=== PATIENT | male | born 1945 | race Caucasian/White ===

== ENCOUNTER 2019-04-13 11:03 | Emergency (ER) | payer MEDICARE, SELFPAY ==
--- NOTE | ~2019-04-13 | CT_ITS ---
EXAMINATION: CT abdomen pelvis wo con EXAM DATE: 04/13/2019 13:37 INDICATION: Left flank pain. TECHNIQUE: Spiral CT of the abdomen and pelvis was performed without contrast. Axial, coronal and sag ittal images were reviewed. The dose-length product (DLP) for this examination was 1425.52 mGy-cm. The exposure was tailored according to patient size (auto mA exposure control), and iterative reconst ruction (ASIR) was used as additional dose reduction technique. There is no prior study for comparis on. FINDINGS: There are 2 contiguous left ureteropelvic junction stones at 4 and 6 mm, mild hydronephrosi s. There are 2 stones at the left ureterovesicular junction measuring 2 and 3 mm. No hydroureter. Thi s is a cyst There are 2 additional 3 mm left inferior calyceal stones. Moderate inflammation surround ing the left kidney. There is mild prostatomegaly. The bladder is unremarkable. The liver, spleen, adrenal glands and pancreas are unremarkable. Gallbladder is unremarkable. No biliary obstruction. There is no retroperitoneal or pelvic lymphadenopathy. There is moderate scattered arterioscleroti c disease. The appendix is normal. The stomach and small bowel are unremarkable. There is expected amount of c olonic stool. There is extensive colonic diverticulosis. There is no adjacent inflammatory change to suggest diverticulitis. The heart is normal in size. There are no pericardial or pleural effusions. The lung bases are unremarkable. There are no osteoblastic or osteolytic lesions identified. Mild lumbar levoscoliosis. IMPRESSION: 1. Left UPJ obstructing 4 and 6 mm stones, mild hydronephrosis. 2. Left UVJ 2 and 3 mm stones without hydroureter. 3. Left nephrolithiasis. 4. Extensive colonic diverticulosis. Reviewed, dictated and finalized at location B. ICULTURAL AGENT
--- NOTE | ~2019-04-13 | XR_ITS ---
EXAMINATION: XR abdomen/kub 1V DATE: 04/13/2019 15:00 INDICATION: Left flank pain. TECHNIQUE: A supine view of the abdomen on 2 radiographs was obtained. COMPARISON: CT abdomen and pelvis 04/13/2019 FINDINGS: There are no dilated loops of bowel. The kidneys are obscured by bowel. There are 3 mm and 3 mm stones in proximal left ureter. IMPRESSION: 1. Two 3 mm stones in proximal left ureter. Reviewed, dictated and finalized at location A. CT OPENER AND FILLER
[2019-04-13 11:24] VITALS: BP 151/80; PULSE 60; RESP 18; TEMP 36.9; O2SAT 100
[2019-04-13 11:40] LABS: Basophils Percent Auto 0.2 % (0.2-1.2); Hematocrit 45.6 % (42.0-52.0); Hemoglobin 15.1 g/dL (14.0-18.0); Immature Granulocyte Absolute 0.04 K/mm3 (0.00-0.031); Immature Granulocyte Percent A 0.4 % (0-0.5); Lymphocytes Absolute Auto 0.53 K/mm3 (0.9-3.2); Lymphocytes Percent Auto 5.7 % (18.3-44.2); Mean Corpuscular HGB Conc 33.1 g/dl (32-36); Mean Corpuscular Hemoglobin 31.3 pg (26-34); Mean Corpuscular Volume 94.6 fl (80-100); Monocytes Absolute Auto 0.2 K/mm3 (0.1-0.6); Monocytes Percent Auto 2.6 % (2.6-8.5); Neutrophils Absolute Auto 8.4 K/mm3 (1.3-6.7); Neutrophils Percent Auto 91.1 % (45.5-73.1); Platelet Count Result 186 k/mm3 (150-375); Red Blood Count 4.82 M/mm3 (4.6-6.20); Red Cell Distribution Width 12.9 % (11.5-14.5); White Blood Count 9.2 K/mm3 (4.5-10.0)
[2019-04-13 11:54] LABS: Blood Urea Nitrogen 21 mg/dL (9-20); Calcium 9.2 mg/dL (8.4-10.2); Carbon Dioxide 29 mmol/L (22-30); Chloride 99 mmol/L (98-107); Estimated CRCL calculation 55 ml/min; Estimated Glomerular Filt Rate > 60; Glucose 129 mg/dL (75-110); Potassium 4.6 mmol/L (3.4-5.0); Sodium 135 mmol/L (137-145)
[2019-04-13 12:13] LABS: Add Urine Microscopic? YES; Appearance Urine Cloudy (Clear); Bilirubin Urine Negative (Negative); Blood Urine 3+ (Negative); Color Urine Yellow (Yellow); Glucose Urine UA Negative (Negative); Ketones Urine Negative (Negative); Leukocyte Esterase Ur Negative LEU/UL (Negative); Mucus Urine Rare /lpf; Nitrate Urine Negative (Negative); Protein Urine 1+ mg/dL (Negative); RBC Urine >75 /hpf (0-2); Specific Grav Ur 1.012 (1.001-1.035); Squamous Epithelial Cell Urine Rare /hpf (Few); Urobilinogen Urine Negative mg/dL (<2.0)
[2019-04-13 12:58] VITALS: BP 139/68; PULSE 84; RESP 16; TEMP 36.8; O2SAT 98
--- NOTE | 2019-04-13 13:03 | ED.ABDPAIN ---
HPI - Abdominal Pain General Chief Complaint: Abdominal Pain Stated Complaint: llq pain/flank pain Time Seen by Provider: 04/13/19 13:00 Source: patient and RN notes reviewed Mode of arrival: ambulatory Limitations: no limitations History of Present Illness HPI narrative: A 73 y/o male presents to the ED with constant lt flank pain that waxes and wanes in intensity beginning earlier this morning. He states that the pain radiates into her lt lower back and LLQ. He reports associated nausea and that position aggravates the pain. He notes that he did have a CT last year which showed multiple kidney stones. He denies any vomiting, diarrhea, urinary urgency, hematuria, or dysuria. MD elicited complaint: flank pain Pertinent past history: kidney stones Onset (ago): hour(s) Pain Consistency: constant (waxes and wanes intensity) Location: L flank Radiation: LLQ and back (lt lower) Exacerbating factors: other (position) Associated symptoms: nausea Related Data Home Medications Medication Instructions Recorded Confirmed metoprolol succinate PO 04/13/19 rivaroxaban [Xarelto] mg 04/13/19 04/13/19 Allergies Allergy/AdvReac Type Severity Reaction Status Date / Time No Known Allergies Allergy Verified 04/13/19 12:59 Review of Systems Review of Systems: All systems reviewed & are unremarkable except as noted in HPI and below Gastrointestinal: Gastrointestinal: Reports abdominal pain (LLQ), Denies diarrhea, Reports nausea and Denies vomiting Genitourinary: Genitourinary: Denies hematuria, Denies dysuria, Reports flank pain (lt) and Denies urinary urgency Musculoskeletal: Musculoskeletal: Reports back pain (lt lower back pain) [facility] Past Medical History Medical History (Updated 04/13/19 @ 16:15 by Yazan Espinosa MD) Atrial flutter Hernia Hx of cataract Medical history unknown MVP (mitral valve prolapse) Prostate CA Surgical History Surgical History (Updated 04/13/19 @ 14:03 by Wong Boogie) H/O hernia repair History of cataract surgery Surgical history unknown Social History Social History (Updated 04/13/19 @ 14:04 by Wong Boogie) Smoking status: Unknown if ever smoked Gender identity (if verbalized by the patient): Male Exam Narrative: Exam Narrative: GENERAL: Well-appearing, well-nourished, and in no acute distress. HEAD: Normocephalic, atraumatic. ENT: Mucous membranes moist. CHEST: Clear to auscultation. No respiratory distress. HEART: Tachycardic and regular. Normal peripheral pulses. ABDOMEN: Soft, moderate left sided AP w/o guarding, nondistended. Left CVA tenderness. EXTREMITIES: Normal range of motion. No edema. SKIN: Warm, dry, no rash. NEURO: Alert and oriented x3. PSYCH: Normal mood and affect. Course Course Emergency Course: Patient aware of dx and tx plan. Pain resoleved with morphine. Consultations Consultation #1: Discussed case with Dr. Nogueira (Urologist). States that he would like a KUB and reassessment of pt's pain, still determining if he will do a procedure today or have them follow up at out pt. Date: 04/13/19 Time: 14:21 Consultation #2: Discussed case with Dr. Nogueira (Urology). Recommends d/c the pt and having them follow up with him as an out pt. Date: 04/13/19 Time: 15:32 Vital Signs Vital signs: Vital Signs Temperature 98.4 F 04/13/19 11:24 Pulse Rate 60 04/13/19 11:24 Respiratory Rate 18 04/13/19 11:24 Blood Pressure 151/80 H 04/13/19 11:24 Pulse Oximetry 100 04/13/19 11:24 Temperature 98.2 F 04/13/19 12:58 Pulse Rate 74 04/13/19 15:07 Respiratory Rate 16 04/13/19 15:07 Blood Pressure 144/94 H 04/13/19 15:07 Pulse Oximetry 100 04/13/19 15:07 MDM - Abdominal Pain Lab Data Result diagrams: 04/13/19 11:28 04/13/19 11:28 Labs: Lab Results 04/13/19 04/13/19 04/13/19 Range/Units 11:28 11:28 11:52 WBC 9.2 (4.5-10.0) K/mm3 RBC 4.82 (4.6-6.20) M/mm3 Hgb 15.1 (14.0-18.0) g/d
[2019-04-13] MEDS: MORPHINE SULFATE 2 MG/ML INJ IV PUSH ×2 (13:32→14:16)
[2019-04-13] MEDS: ONDANSETRON INJ 4 MG/2 ML VIAL IV PUSH (13:34)
[2019-04-13 13:42] VITALS: BP 136/88; PULSE 118; RESP 12; O2SAT 100
[2019-04-13] MEDS: SODIUM CHLORIDE 0.9% IV 1,000 ML 999 ML IV CONT (14:07)
[2019-04-13 15:07] VITALS: BP 144/94; PULSE 74; RESP 16; O2SAT 100
[2019-04-13 16:37] VITALS: BP 130/8; PULSE 84; RESP 16; O2SAT 98
== END 2019-04-13 16:38 | disposition home or self-care (01) ==
PROVIDERS: Emergency Medicine; Emergency Provider Emergency Medicine
DX: N13.2 Hydronephrosis with renal and ureteral calculous obstruction (principal); I48.92 Unspecified atrial flutter; Z79.01 Long term (current) use of anticoagulants; I34.1 Nonrheumatic mitral (valve) prolapse; Z85.46 Personal history of malignant neoplasm of prostate; Z98.49 Cataract extraction status, unspecified eye; K57.90 Diverticulosis of intestine, part unspecified, without perforation or abscess without bleeding
CPT/HCPCS: 36415; 74018; 74176; 80048; 81001; 85025; 87086; 87088; 96361; 96374; 96375; 96376; 99284; J2270; J2405; J7030

== ENCOUNTER 2019-04-14 10:01 | Outpatient (CLI) | payer MEDICARE, SELFPAY ==
--- NOTE | ~2019-04-14 | XR_ITS ---
EXAMINATION: XR abdomen/kub 1V EXAM DATE: 04/14/2019 10:16 INDICATION: Left kidney stone. TECHNIQUE: Frontal projection(s) of the abdomen for interpretation. Comparison is made to prior exami nation from 04/13/2019. FINDINGS: Probable identification of 2 left proximal calyceal stones, indicated. Moderate amount of colonic gas and stool. No small bowel obstruction. Mild to moderate bony degenerative changes. There is no organomegaly. IMPRESSION: Probable left proximal ureteral stones identified. Cannot identify the left UVJ stones. Reviewed, dictated and finalized at location B. STANT OPERATOR
== END 2019-04-14 10:02 | disposition home or self-care (01) ==
LOC: ANHIMG 10:09
PROVIDERS: Visit Provider Urology
DX: N20.0 Calculus of kidney (principal)
CPT/HCPCS: 74018

== ENCOUNTER 2019-04-14 12:03 | Day surgery (SDC) | payer MEDICARE, SELFPAY ==
[2019-04-14] VITALS (8 sets, daily range): BP systolic 91–149; BP diastolic 65–89; PULSE 74–99; RESP 12–20; TEMP 36.7–36.8; O2SAT 95–100
--- NOTE | ~2019-04-14 | XR_ITS ---
EXAMINATION: XR stent kub - surgery INDICATION: Left stone extraction TECHNIQUE: Four intraoperative fluoroscopic views are submitted for review. Total fluoroscopic time i s 45 seconds. COMPARISON: KUB from today FINDINGS: Fluoroscopic images demonstrate placement of a left internal ureteral stent in expected pos ition. Please refer to procedure note for full details. IMPRESSION: 1. Left internal ureteral stent in expected position. Please refer to procedure note for full details . Reviewed, dictated and finalized at location A. D CARE GIVER IMPRESSION: 1. Left internal ureteral stent in expected position. Please refer to procedure note for full details.
[2019-04-14] MEDS: LACTATED RINGERS 1,000 ML 30 ML IV CONT ×2 (13:30→17:17)
[2019-04-14] MEDS: ONDANSETRON INJ 4 MG/2 ML VIAL IV PUSH (13:40)
--- NOTE | 2019-04-14 14:36 | WPDANESEPPF ---
Anes - Initial Pre Proc Eval Procedure: Operation Date: 04/14/19 16:30 Proposed Procedures p Cystoscopy, Left Ureteroscopy, Left Retrograde Pyelogram, Left Stone Extraction, Possible Left Stent Placement - Andrés Nogueira MD s Possible Holmium Laser Procedure - Andrés Nogueira MD Date/Time: 04/14/19 14:36 Surgeon: Andrés Nogueira MD Pre Op Diagnosis: Left Stone Patient Data Age: 73 Gender: M Height: Weight: Allergies Allergy/AdvReac Type Severity Reaction Status Date / Time No Known Allergies Allergy Verified 04/13/19 12:59 Home Medications Medication Instructions Recorded Confirmed Type hydrocodone-acetaminophen 1 tablet PO Q6H PRN #20 tablet 04/13/19 Rx metoprolol succinate PO 04/13/19 History ondansetron 4 mg PO Q6H PRN #10 tablet 04/13/19 Rx rivaroxaban [Xarelto] mg 04/13/19 04/13/19 History tamsulosin 0.4 mg PO DAILY #7 cap 04/13/19 Rx Patient hx anesthesia problems: none Family hx anesthesia problems: none PMFSH Past Medical History Medical History (Updated 04/14/19 @ 00:00 by Abbie Maldonado) Atrial flutter Hernia Hx of cataract Medical history unknown MVP (mitral valve prolapse) Prostate CA Surgical History Surgical History (Updated 04/13/19 @ 14:03 by Wong Boogie) H/O hernia repair History of cataract surgery Surgical history unknown Social History Social History (Updated 04/14/19 @ 14:36 by Yandel Grier DO) Social History: 1 drink, 4-5 days per week Smoking status: Unknown if ever smoked Gender identity (if verbalized by the patient): Male Anes - Eval Final PreProcedure Day of Procedure 04/14/19 14:36 Patient weight: normal Heart: regular rate and rhythm Lungs: clear to auscultation and normal air movement Airway: Mallampati scale class II Neurological: alert and oriented Last oral intake: >/= 8 hours ASA classification: III Emergent: no Anesthetic plan: proceed Anesthesia type and monitoring: general LMA and standard monitoring Informed Consent: The patient's anesthetic plan and its attendant risks and benefits were discussed with the patient/family/POA. Questions were solicited and answers provided to the satisfaction of the patient/family/POA.
--- NOTE | 2019-04-14 15:42 | SUR.PREOP ---
1540- report given to [facility] [place] pt resting in bed. call light in reach.
[2019-04-14] MEDS: ceFAZolin 2 GM/D5W 50 ML 2 GM/50 ML BAG IVPB (16:25)
--- NOTE | 2019-04-14 17:13 | PM.PROC ---
Procedure Note - Detailed Date of procedure: 04/14/19 Pre-op diagnosis: Left Stone Post-op diagnosis: same Procedure performed: 1. Cystoscopy, left ureteroscopy with laser lithotripsy, stone extraction. 2. Left ureteral stent placement. Description of procedure: The patient was brought to the operative suite where he is prepped and draped in a routine sterile fashion while in the dorsal lithotomy position after the uneventful induction of a general LMA anesthetic. A 19F rigid cystoscope was placed in the bladder. There are no urethral strictures. His prostatic urethra measures, approximately, 2.0cm with no median lobe enlargement. The bladder mucosa was endoscopically normal without hyperemia or neoplasm. There was a single, orthotopic ureteral orifice bilaterally. A 0.035 glidewire was advanced into the left renal pelvis under fluoroscopy. The distal ureter was dilated with an 8F/10F ureteral dilator. Ureteroscopy was undertaken first with a short tapered semi-rigid ureteroscope. He has an ~5mm distal ureteral stone which is extracted with a 1.9F disposable Escape basket. With the same scope 2 additional, ~2mm left distal ureteral stones are extracted with similar ease. I then replaced the semirigid scope with a 7.5F flexible ureteroscope. There is a 5mm stone somewhat impacted in the proximal ureter. With irrigation I washed the stone back into his lower pole calyx where I found a second, similar size stone. I fractured the stones into tiny pieces using a 273 micron Holmium laser fiber with the Holmium laser. I extraced the largerst stone pieces using a 1.9F Escape, disposable stone basket. Due to the extent of this manipulation I did place a 4.8F double-J ureteral stent. The proximal coil of the stent was confirmed to be in the renal pelvis and the distal coil in the bladder. The patient's bladder was emptied and he was taken to the recovery room having tolerated this procedure well. Anesthesia: GLMA Surgeon: Baldomero Finley MD Estimated blood loss (mL): 0 Drains: Yes (4.8F left ureteral stone) Packing: No Pathology: yes Complications: No immediate complications Condition: stable Disposition: PACU
--- NOTE | 2019-04-14 17:23 | SUR.OPER ---
4.8fr left ureteral stent.
== END 2019-04-14 18:41 | disposition home or self-care (01) ==
PROVIDERS: Urology; PCP Internal Medicine; Visit Provider Urology
PROC: (CPT 52352; principal; 2019-04-14 16:30)
DX: N20.1 Calculus of ureter (principal); I48.92 Unspecified atrial flutter; I34.1 Nonrheumatic mitral (valve) prolapse; Z85.46 Personal history of malignant neoplasm of prostate; Z79.01 Long term (current) use of anticoagulants
CPT/HCPCS: 52356; 82365; 88300; C1769; C1887; C2617; J0131; J0690; J1100; J2250; J2370; J2405; J2704; J3010; J7120; Q9966

== ENCOUNTER 2019-05-03 11:21 | Outpatient (CLI) | payer MEDICARE, SELFPAY ==
--- NOTE | ~2019-05-03 | XR_ITS ---
XR abdomen/kub 1V 05/03/2019 11:40 Indication: Left kidney stones Procedure: KUB Comparison: Comparison to multiple prior studies sequentially, with oldest reviewed study dated 04/13/2019. Findings: Bowel gas pattern is nonobstructive. Left internal ureteral stent in expected position. No definite renal or ureteral stones are identified. There are vascular calcifications in the pelvis. Mi ld lumbar spondylosis with levoscoliosis. Impression: 1: No acute abdominal abnormality. Reviewed, dictated and finalized at location B. ING PRESS OPERATOR Impression: 1: No acute abdominal abnormality.
== END 2019-05-03 11:22 | disposition home or self-care (01) ==
LOC: ANHIMG 11:26
PROVIDERS: Visit Provider Urology
DX: N20.0 Calculus of kidney (principal)
CPT/HCPCS: 74018

== ENCOUNTER 2019-12-01 06:42 | Outpatient (CLI) | payer MEDICARE, SELFPAY ==
--- NOTE | ~2019-12-01 | XR_ITS ---
XR abdomen/kub 1V DATE: 12/01/2019 06:57 INDICATION: Left ureteral calculus TECHNIQUE: AP projection, 2 views COMPARISON: 05/03/2019 KUB 04/13/[address] abdomen pelvis FINDINGS: 2 small calcific densities overlying the lower pole left kidney, likely corresponding to 2 small nonobstructing calculi of the lower pole left kidney noted on 04/13/[address] abdomen pelvis examination. No apparent ureteral calculus or right-sided urinary tract calculus is noted. The psoas shadows are intact. No visceromegaly is detected. No evidence of bowel obstruction. Levoscoliosis of the lumbar spine. IMPRESSION: Nonobstructive lower pole left nephrolithiasis Reviewed, dictated and finalized at Location A. Reviewed, dictated and finalized at location B.
== END 2019-12-01 06:43 | disposition home or self-care (01) ==
LOC: ANHIMG 06:45
PROVIDERS: Visit Provider Urology
DX: N20.1 Calculus of ureter (principal)
CPT/HCPCS: 74018

== ENCOUNTER 2021-10-25 14:55 | Outpatient (CLI) | payer MEDICARE, SELFPAY ==
--- NOTE | ~2021-10-25 | XR_ITS ---
XR abdomen/kub 1V 10/25/2021 15:19 INDICATION: Left flank pain TECHNIQUE: KUB COMPARISON: None FINDINGS: Bowel gas pattern is normal. There is no evidence of free air, mass, organomegaly, ascites or obstruction. No abnormal calculi are seen. The bones appear intact. There is lumbar spondylosis with levoscoliosis. There is osteoarthritis of the hips. IMPRESSION: 1: No acute abdominal abnormality identified. Reviewed, dictated and finalized at location A.
--- NOTE | ~2021-10-25 | CT_ITS ---
EXAMINATION: CT abdomen pelvis wo con DATE: 10/25/2021 15:25 INDICATION: Left flank pain TECHNIQUE: Computed tomography (CT) of the abdomen and pelvis was performed without intravenous contr ast. Automated exposure control and iterative reconstruction technique were employed. The dose-length product was 186.15 mGy-cm. COMPARISON: 04/13/2019 FINDINGS: New elevation the left hemidiaphragm. Mild atelectasis at the bilateral lower lobes. Heart size is no rmal. Atherosclerotic coronary artery calcification and aortic valve calcification. No pericardial or pleural effusion. Liver, gallbladder, spleen, pancreas and bilateral adrenal glands are normal. Nono bstructing 1 mm stone at a lower pole calyx of the right kidney. 4 mm obstructing stone at the left u reteropelvic junction with mild left hydronephrosis. There are couple additional 1 mm stones in the l ower pole calyces of the left kidney. There is moderate colonic diverticulosis with a sigmoid predomi nance. There is no adjacent inflammatory change to suggest diverticulitis. Small bowel and appendix are normal. Bladder is normal. Calcifications and a couple small metallic densities in the prostate. Correlate with surgical history. No free intraperitoneal gas or fluid. No pathologically enlarged abd ominal or pelvic lymphadenopathy. Mild likely physiologic anterior wedging at T12 and L1. Mild lumbar levoscoliosis. Severe disc height loss at L2-L3. Otherwise mild to moderate spondylosis in the lumba r and lower thoracic spine. IMPRESSION: 1. Bilateral nephrolithiasis with obstructing 4 mm stone at the left ureteropelvic junction resulting in mild left hydronephrosis. 2. Diverticulosis. Reviewed, dictated and finalized at location A. IMPRESSION: 1. Bilateral nephrolithiasis with obstructing 4 mm stone at the left ureteropel alexander junction resulting in mild left hydronephrosis. 2. Diverticulosis.
== END 2021-10-25 14:56 | disposition home or self-care (01) ==
PROVIDERS: PCP Internal Medicine; Visit Provider Nurse Practitioner Adult Health
DX: R10.9 Unspecified abdominal pain (principal); N20.0 Calculus of kidney; K57.30 Diverticulosis of large intestine without perforation or abscess without bleeding
CPT/HCPCS: 74018; 74176

== ENCOUNTER 2021-11-13 14:08 | Outpatient (CLI) | payer MEDICARE, SELFPAY ==
--- NOTE | ~2021-11-13 | XR_ITS ---
EXAM: XR abdomen/kub 1V DATE: 11/13/2021 14:36 HISTORY: LEFT URETERAL STONE . COMPARISON: 10/25/2021, CT abdomen and pelvis 11/13/2021. FINDINGS: Clear lung bases. Surgical clips or prostate implants over the midline pelvis. Vascular ca lcification. 7 mm left UPJ calcification. Punctate bilateral renal calcifications better seen on the concurrent CT. Normal bowel gas pattern. No organomegaly. Degenerative change in the lumbar spine and bilateral hips. IMPRESSION: 7 mm left UPJ stone. Reviewed, dictated and finalized at location K. IMPRESSION: 7 mm left UPJ stone.
--- NOTE | ~2021-11-13 | CT_ITS ---
EXAMINATION: CT abdomen pelvis wo con DATE: 11/13/2021 14:41 INDICATION: Left flank pain TECHNIQUE: Computed tomography (CT) of the abdomen and pelvis was performed without intravenous contr ast. The dose-length product (DLP) was 191.19 mGy-cm. Automated exposure control and iterative recons truction technique were employed. COMPARISON: 10/25/2021 FINDINGS: Minimal dependent atelectasis is present in the lung bases. The heart size is normal. The l iver, spleen, pancreas, and adrenal glands are normal. The gallbladder is decompressed. There is a 7 mm stone at the left ureteropelvic junction which causes moderate hydronephrosis. There is a 2 mm non obstructing stone of the left kidney. The right kidney is unremarkable. No pathologically enlarged ab dominal or pelvic lymph nodes are identified. There is calcified atherosclerosis of the aorta and man y of the other arteries. Colonic diverticulosis is present without evidence of diverticulitis. Brachy therapy seeds are noted in the prostate. The appendix is normal. There is moderate lumbar spondylosis . IMPRESSION: 1. 7 mm stone at the left ureteropelvic junction causing moderate hydronephrosis. Reviewed, dictated and finalized at location B. IMPRESSION: 1. 7 mm stone at the left ureteropelvic junction causing moderate hydronephrosi s.
== END 2021-11-13 14:09 | disposition home or self-care (01) ==
PROVIDERS: PCP Internal Medicine; Visit Provider Nurse Practitioner Adult Health
DX: N20.1 Calculus of ureter (principal); M16.0 Bilateral primary osteoarthritis of hip; I70.0 Atherosclerosis of aorta; K57.30 Diverticulosis of large intestine without perforation or abscess without bleeding; M47.816 Spondylosis without myelopathy or radiculopathy, lumbar region
CPT/HCPCS: 74018; 74176

== ENCOUNTER 2021-11-19 10:10 | Outpatient (CLI) | payer MEDICARE, SELFPAY ==
--- NOTE | 2021-11-19 10:34 | ECG_ITS ---
Measurements Intervals [place] Rate: 69 P: 53 MS: 186 QRS: 0 QRSD: 85 T: 16 QT: 402 QTc: 432 Interpretive Statements SINUS RHYTHM CANNOT RULE OUT SEPTAL INFARCT, AGE INDETERMINATE BORDERLINE T WAVE ABNORMALITY- INFERIOR LEADS BASELINE ARTIFACT- I, II, AVR, AVL, AVF ABNORMAL ECG NO PREVIOUS ECG AVAILABLE FOR COMPARISON Electronically Signed On 11-19-2021 12:20:05 CDT by Renzo Perez D.O.
[2021-11-19 11:22] LABS: INR 1.3; Prothrombin Time 15.8 Seconds (11.1-14.7)
[2021-11-19 11:23] LABS: Partial Thromboplastin Time 37.6 SECONDS (22.3-36.8)
== END 2021-11-19 10:11 | disposition home or self-care (01) ==
LOC: ANHSURGERY 10:18
PROVIDERS: PCP Internal Medicine; Visit Provider Urology
DX: Z01.818 Encounter for other preprocedural examination (principal); I25.2 Old myocardial infarction; I48.92 Unspecified atrial flutter; N20.0 Calculus of kidney; Z51.81 Encounter for therapeutic drug level monitoring; Z79.899 Other long term (current) drug therapy
CPT/HCPCS: 36415; 85610; 85730; 87086; 93005

== ENCOUNTER 2021-11-22 00:43 | Day surgery (SDC) | payer MEDICARE, SELFPAY ==
--- NOTE | 2021-11-15 15:27 | PC.NURSE ---
Report to the Outpatient Waiting Room, entrance under the green pavilion located off [facility], at time 1100 on date ___11/22/21____. OR Time: __1300 . Time changes happen often and if your time is changed the preop area will call you the afternoon before. - You and your visitor will be asked to self-screen and do not enter if you have any COVID symptoms. - Only one visitor and NO children visitors are allowed at this time. - The patient visitor is requested to leave or wait in car when not with patient due to restrictions. - A mask is required within the hospital. Patients may have clear liquids (water, carbonated beverages, clear teas, apple juice) until 3 hours prior to surgery with a maximum of 20 ounces. - No food from midnight until time of surgery - Infants may have breast milk until 4 hours before surgery, formula 6 hours prior to surgery. - Children will be allowed to drink immediately following surgery. If applicable, please bring a bottle or sippy cup to assist with drinking. Juice, water, soda, and popsicles are readily available. For infants on formula, please bring formula the day of surgery. Pacifiers are allowed. Take the following medications with a SIP of water the morning of surgery: ___NONE Medications to discontinue per physician ____HOLD XARELTO PER DR GLASGOW. ALL VITAMINS AND SUPPLEMENTS 3 DAYS PRE OP Date to take last dose____11/18/21 Please no make-up, nail canadian, hairspray, perfume, deodorant, or body powder the day of surgery. No jewelry (including any body piercings) or valuables the day of surgery, leave them at home. Please take a shower or bath the night before, or the morning of, surgery with an antibacterial soap. Wear comfortable, loose fitting clothing. Children are encouraged to wear pajamas. - Jewelry must be removed prior to entering the operating room. Rings and piercings that are not removed may be cut off. - The hospital will not accept responsibility for valuables. - Please leave all valuables, including medications, at home the day of surgery. If you are going home after surgery, a licensed nascar driver must drive you home. - NO public transportation without another adult. - We recommend that an adult stay with you for 24 hours following discharge. - We also recommend that you do not drive, make important decision, drink alcoholic beverages, or take any drugs that were not prescribed by your health care provider for at least 24 hours after your discharge time. For Pediatric surgeries, we recommend two adults accompany the child home (only one inside the building at this time). Follow any additional instructions given to you from your surgeon. If you or anyone in your household have experienced Covid symptoms in the past week, please notify your surgeon or the nurse liaison at the phone number below for possible testing. Telephone instructions given to __PATIENT and asked if any additional questions and then verbalized understanding. Patient advised to call surgeon office or pre surgery nurse liaison [phone] if any additional questions.
[2021-11-15 15:41] VITALS: BMI 20.2
[2021-11-22] VITALS (8 sets, daily range): BP systolic 104–128; BP diastolic 72–78; PULSE 70–84; RESP 14–21; TEMP 36–36.9; O2SAT 97–100
--- NOTE | ~2021-11-22 | CT_ITS ---
EXAMINATION: CT abdomen pelvis wo con DATE: 11/22/2021 11:17 INDICATION: Left ureteral stone TECHNIQUE: Computed tomography (CT) of the abdomen and pelvis was performed without intravenous contr ast. The dose-length product (DLP) was 287.92 mGy-cm. Automated exposure control and iterative recons truction technique were employed. COMPARISON: 11/13/2021 FINDINGS: Minimal dependent atelectasis is present in the lung bases. The heart size is normal. The l iver, spleen, pancreas, gallbladder, and adrenal glands are normal. There is a 5 mm stone at the left ureteropelvic junction causing moderate hydronephrosis. There are nonobstructing stones in the lower poles of the kidneys measuring up to 2 mm. There is calcified atherosclerosis of the aorta and many of the other arteries. No pathologically enlarged abdominal or pelvic lymph nodes are identified. The re is no free intraperitoneal gas or evidence of bowel obstruction. The appendix is normal. Colonic d iverticulosis is present without evidence of diverticulitis. Brachytherapy seeds are noted in the pro state. There is moderate lumbar spondylosis. IMPRESSION: 1. 5 mm stone at the left ureteropelvic junction causing moderate hydronephrosis. Reviewed, dictated and finalized at location A. IMPRESSION: 1. 5 mm stone at the left ureteropelvic junction causing moderate hydronephrosi s.
--- NOTE | ~2021-11-22 | XR_ITS ---
EXAMINATION: XR abdomen/kub 1V DATE: 11/22/2021 09:38 INDICATION: Kidney stone. TECHNIQUE: A supine view of the abdomen on 2 radiographs was obtained. COMPARISON: CT abdomen and pelvis 11/13/2021 FINDINGS: There are phleboliths in the pelvis. There are brachytherapy seeds in the prostate. There i s no visible urolithiasis. IMPRESSION: 1. No visible urolithiasis. Reviewed, dictated and finalized at location A. IMPRESSION: 1. No visible urolithiasis.
--- NOTE | 2021-11-22 06:26 | WPDHPUPDATE1 ---
History and Physical Update Update Date/Time: 11/22/21 06:26 History and Physical has been reviewed, including an updated exam of the patient. There are NO changes in the patient's condition. Risks, benefits, and alternatives have been discussed and questions answered. Patient agrees to proceed with procedure.
--- NOTE | 2021-11-22 09:02 | P.PNAN_ITS ---
Anes - Initial Pre Proc Eval Procedure: Operation Date: 11/22/21 12:00 Proposed Procedures p Left Ureteral Extracorporeal Shock Wave Lithotripsy - Baldomero Finley MD Date/Time: 11/22/21 09:02 Surgeon: Baldomero Finley MD Pre Op Diagnosis: left ureteral kidney stone Patient Data Age: 76 Gender: M Height: 1.91 m Weight: 73.5 kg Allergies Allergy/AdvReac Type Severity Reaction Status Date / Time No Known Allergies Allergy Verified 11/22/21 10:12 Home Medications Medication Instructions Recorded Confirmed Type metoprolol succinate 25 mg 25 mg PO QPM 04/13/19 11/22/21 History tablet,extended release 24 hr rivaroxaban 20 mg tablet (Xarelto) 20 mg PO QPM 04/13/19 11/22/21 History hydrocodone 5 mg-acetaminophen 325 1 tablet PO Q6H PRN pain #20 tabs 04/14/19 11/22/21 Rx mg tablet calcium carbonate 600 mg-vitamin 1 tablet PO DAILY 11/15/21 11/22/21 History D3 10 mcg (400 unit) tablet (Calcium 600 + D(3)) cholecalciferol (vitamin D3) 25 25 mcg PO BID 11/15/21 11/22/21 History mcg (1,000 unit) tablet megestrol 40 mg tablet 10 mg PO BID 11/15/21 11/22/21 History multivitamin 1 tablet PO DAILY 11/15/21 11/22/21 History tamsulosin 0.4 mg capsule 0.4 mg PO QPM 11/15/21 11/22/21 History vit C 250 mg-vit E 90 mg-zinc 40 1 tablet PO DAILY 11/15/21 11/22/21 History mg-copper 1 [id number] capsule (PreserVision AREDS-2) Patient hx anesthesia problems: none Family hx anesthesia problems: none Results Review: All pre-operative results and documents have been reviewed as part of the pre- operative evaluation. PMFSH Past Medical History Medical History (Updated 04/14/19 @ 00:00 by Abbie Maldonado) Atrial flutter Hernia Hx of cataract Medical history unknown MVP (mitral valve prolapse) Prostate CA Surgical History Surgical History (Updated 04/13/19 @ 14:03 by Wong Boogie) H/O hernia repair History of cataract surgery Surgical history unknown Social History Social History (Updated 04/14/19 @ 14:36 by Yandel Grier DO) Social History: 1 drink, 4-5 days per week Smoking packs per day: 2.5 Smoking cigarettes per day: 50.0 Years smoked: 21 Smoking pack-years: 52.50 Smoking status: Unknown if ever smoked Tobacco type: cigarettes Smoking end date: 03/02/80 Alcohol intake: current Drinks per week: 3 Living arrangements: with family Gender identity (if verbalized by the patient): Male Spiritual care concerns: No Anes - Eval Final PreProcedure Day of Procedure 11/22/21 09:02 Patient weight: normal Heart: regular rate and rhythm Lungs: clear to auscultation and normal air movement Airway: Mallampati scale class II Neurological: alert and oriented Last oral intake: >/= 8 hours ASA classification: III Emergent: no Anesthetic plan: proceed Anesthesia type and monitoring: general LMA and standard monitoring Results Review: All pre-operative results and documents have been reviewed as part of the pre- operative evaluation. Informed Consent: The patient's anesthetic plan and its attendant risks and benefits were discussed with the patient/family/POA. Questions were solicited and answers pr ovided to the satisfaction of the patient/family/POA.
[2021-11-22] MEDS: LACTATED RINGERS 1,000 ML 30 ML IV CONT (10:16)
[2021-11-22 10:24] LABS: INR 1.1; Prothrombin Time 13.7 Seconds (11.1-14.7)
[2021-11-22 10:25] LABS: Partial Thromboplastin Time 30.7 SECONDS (22.3-36.8)
--- NOTE | 2021-11-22 11:14 | SUR.PREOP ---
[address] for cat scan abd and pelvis per dr reaves
[2021-11-22] MEDS: ceFAZolin 2 GM/D5W 50 ML 2 GM/50 ML BAG IVPB (11:33)
--- NOTE | 2021-11-22 12:24 | W.PM.PROC2 ---
Procedure Note - Detailed Date of Procedure 11/22/21 Pre-op Diagnosis Left ureteral stone Post-op Diagnosis Same Procedure Performed Left ESWL Surgeon Baldomero Finley MD Description of Procedure The patient was brought to the operative suite where he was placed in the supine position on the Dornier lithotripsy table. The focal point of the lithotripter was placed at a 7mm left proximal ureteral calculus. A total of 2500 shocks were delivered at a power setting of 4. There appeared to be good fragmentation of the stone. The patient tolerated the procedure well and was taken to the recovery room in good condition. Drains No Packing No Pathology None sent Complications No immediate complications
== END 2021-11-22 14:09 | disposition home or self-care (01) ==
PROVIDERS: PCP Internal Medicine; Visit Provider Urology
PROC: (CPT 50590; principal; 2021-11-22 12:00)
DX: N20.0 Calculus of kidney (principal)
CPT/HCPCS: 50590; 36415; 74018; 74176; 85610; 85730; 87086; 93005; J0131; J0690; J2370; J2704; J2765; J7120

== ENCOUNTER 2021-12-06 09:22 | Outpatient (CLI) | payer MEDICARE, SELFPAY ==
--- NOTE | ~2021-12-06 | XR_ITS ---
EXAMINATION: XR abdomen/kub 1V DATE: 12/06/2021 09:40 INDICATION: Hydronephrosis. Left kidney stone. TECHNIQUE: A supine view of the abdomen on 2 radiographs was obtained. COMPARISON: CT abdomen and pelvis 11/22/2021 FINDINGS: There are no dilated loops of bowel. There are brachytherapy seeds in the prostate. There a re vascular calcifications in the pelvis. IMPRESSION: 1. No visible urolithiasis. Reviewed, dictated and finalized at location B. IMPRESSION: 1. No visible urolithiasis.
== END 2021-12-06 09:23 | disposition home or self-care (01) ==
PROVIDERS: PCP Internal Medicine; Visit Provider Urology
DX: Z01.818 Encounter for other preprocedural examination (principal); N13.2 Hydronephrosis with renal and ureteral calculous obstruction
CPT/HCPCS: 74018

== ENCOUNTER → 2022-06-20 11:14 | Outpatient (CLI) | payer MEDICARE, SELFPAY ==
--- NOTE | ~2022-06-20 | CT_ITS ---
EXAMINATION: CT abdomen pelvis wo con DATE: 06/20/2022 11:47 INDICATION: Left ureteral stone follow-up TECHNIQUE: Computed tomography (CT) of the abdomen and pelvis was performed without intravenous contr ast. Automated exposure control and iterative reconstruction technique were employed. Exam dose: 249 .30 mGy-cm total exam DLP. COMPARISON: 12/06/2021 KUB 11/22/[address] abdomen pelvis and KUB FINDINGS: There is chronic discoid scarring in the lower lung zones. No infiltrate or consolidation a t the included lung bases. Normal heart size. No pericardial or pleural effusion. A small stone is suggested in the dependent aspect of the contracted gallbladder. Ultrasound would li felix be more definitive for confirmation or exclusion of cholelithiasis. No gallbladder wall thickeni ng or pericholecystic fluid or fat stranding is detected. No bile duct or pancreatic duct dilatation. No hepatic, pancreatic, splenic, and adrenal or renal space-occupying mass lesion is detected. 3.5 mm nonobstructing lower pole left renal calculus. Pinpoint nonobstructing lower pole right renal calculus. No other urinary tract calculus or hydroureteronephrosis is detected. The urinary bladder i s unremarkable. Is prostate enlargement and multiple prostate calcifications. Abdominal aortic and iliac and femoral arterial calcifications; no abdominal aortic aneurysm. No intr aperitoneal or retroperitoneal or pelvic mass lesion or adenopathy or ascites. Normal appendix. There are innumerable diverticula of the left colon with some involvement of the right colon as well. No CT evidence of diverticulitis. No bowel obstruction or intraperitoneal free air. Multilevel degenerative disc disease of the lumbar spine, most pronounced at L2-3. Degenerative spurr ing of the lower thoracic spine. Osteopenia. No suspicious osteolytic or osteoblastic lesions are noted. IMPRESSION: 3 x 5 mm nonobstructing lower pole left renal calculus Pinpoint nonobstructing lower pole right renal calculus No ureteral calculus or hydroureteronephrosis Prostate enlargement and calcifications Diverticulosis of the colon Possible cholelithiasis; consider gallbladder ultrasound correlation Reviewed, dictated and finalized at [facility]. Reviewed, dictated and finalized at location B.
--- NOTE | ~2022-06-20 | XR_ITS ---
Supine and upright views of the abdomen Clinical history: Left ureteral stone COMPARISON: 12/06/2021 Findings: Bowel gas pattern is nonspecific. No evidence for obstruction or free air. Questionable par tially obscured left renal stone.. Osseous structures are intact. Impression: Questionable partially obscured left renal stone. No definite stone along the expected course of the left ureter. Reviewed, dictated and finalized at location . Impression: Questionable partially obscured left renal stone. No definite stone along the expected course of the left ureter.
== END ==
PROVIDERS: PCP Internal Medicine; Visit Provider Nurse Practitioner Adult Health
DX: N20.2 Calculus of kidney with calculus of ureter (principal); K57.30 Diverticulosis of large intestine without perforation or abscess without bleeding
CPT/HCPCS: 74018; 74176

== ENCOUNTER 2023-10-07 09:55 | Outpatient (CLI) | payer MEDICARE, SELFPAY ==
--- NOTE | ~2023-10-07 | XR_ITS ---
XR abdomen/kub 1V Ordering provider: Baldomero Finley MD History: . Kidney stone left side . Comparison: June 20, 2022 FINDINGS: BOWEL: Nonobstructive bowel gas pattern. ORGANOMEGALY: None. SIGNIFICANT PATHOLOGIC CALCIFICATIONS: Calcific shadow projected over the left renal area which may b e a stone. OTHER: Levoscoliosis with degenerative spine. No free air is seen under the diaphragm. Bilateral hip osteoarthritic changes. IMPRESSION: NO ACUTE ABDOMINAL FINDINGS. Left renal stone. Reviewed, dictated and finalized at location A.
== END 2023-10-07 09:56 ==
LOC: MICIMG 09:59
PROVIDERS: PCP Urology; Visit Provider Urology
DX: N20.0 Calculus of kidney (principal)
CPT/HCPCS: 74018

== ENCOUNTER 2024-10-19 07:53 | Outpatient (CLI) | payer MEDICARE, SELFPAY ==
--- NOTE | ~2024-10-19 | XR_ITS ---
EXAM/PROCEDURE: XR abdomen/kub 1V - 10/19/2024 8:18 CDT HISTORY: 78 years old Male with Kidney stone on L side COMPARISON: None available. TECHNIQUE: AP view(s) of the abdomen. FINDINGS: The bowel gas pattern is normal. There is no evidence for obstruction. No free intraperitoneal air is identified on this supine radiograph. The visualized soft tissue shadows are unremarkable. Degenerative changes are seen in spine. Visualized portions of lung bases are clear. IMPRESSION: No acute process. Reviewed, dictated and finalized at location A. IMPRESSION: No acute process.
== END 2024-10-19 07:54 | disposition home or self-care (01) ==
LOC: MICIMG 07:56
PROVIDERS: PCP Urology; Visit Provider Urology
DX: N20.0 Calculus of kidney (principal)
CPT/HCPCS: 74018